=== PATIENT | female | born 2000 | race Caucasian/White ===

== ENCOUNTER → 2018-01-11 | Outpatient (CLI) | payer BC ==
--- NOTE | 2018-01-14 08:27 | PULMONARY FUNCTION TEST ---
CLINICAL DATA: A 17-year-old female with a height of 63 inches and a weight of 110 pounds, referred by Dr. Karen Hoyos for evaluation of allergic rhinitis and cough. Spirometry pre- and post-bronchodilator were performed. FINDINGS: Pre-bronchodilator spirometry was within normal limits. FVC was 110% of predicted. FEV1 was 94% of predicted. EXY39-24 was 82% of predicted. There was slight improvement after inhaled bronchodilator. FVC remained the same. FEV1 improved 6% to 99% of predicted. YTV28-19 improved 17% to 96% of predicted. IMPRESSION: Normal baseline spirometry with improvement in small airway flow after inhaled bronchodilator, consistent with mild asthma/ reactive airways disease. MTDD
== END | disposition home or self-care (01) ==
LOC: C.RC 13:42
PROVIDERS: ATTEND Family Medicine
DX: R05 Cough (principal); R06.00 Dyspnea, unspecified